=== PATIENT | female | born 1960 | race Asian ===

== ENCOUNTER 2017-02-16 05:22 | Day surgery (SDC) | payer OTHER ==
[~2017-02-16] VITALS: Ht 160 cm; Wt 112.3 kg
[~2017-02-16 05:22] MED LIST: ALLO100T PO; ASPI81TA3 PO; BISA-57 PO; BISA5TAB6 PO; BUME1TAB18 PO; EPOE10003 SC; FENO48TA4 PO; GABA100C14 PO; LANT3I SC; LORA10TA3 PO; PANT40TA4 PO; SENN-53 PO; SIMV5TAB50 PO; novolog insulin SC
[2017-02-16 06:01] VITALS: Ht 160 cm; Wt 112.3 kg
[2017-02-16 06:03] VITALS: BP 104/58; PULSE 83; RESP 20
[2017-02-16] MEDS ORDERED: FURO40SO PO (06:12)
[2017-02-16] MEDS ORDERED: SIME125T8 PO (06:12)
[2017-02-16] MEDS ORDERED: METO-335 PO (06:12)
[2017-02-16] MEDS ORDERED: ROCS PO (06:12)
[2017-02-16] MEDS ORDERED: NEPH PO (06:12)
[2017-02-16] MEDS ORDERED: HYDR-3010 PO (06:12)
[2017-02-16] MEDS ORDERED: HEPARIN 1000 UNITS/ML 10 ML INJ ONE (07:07)
[2017-02-16] MEDS ORDERED: LIDOCAINE 1% (MDV) 20 ML INJ ONE (07:07)
[2017-02-16] MEDS ORDERED: IODIXANOL LOCM 100 ML BTL ONE (07:32)
--- NOTE | 2017-02-16 07:45 | SIPON ---
Date/Time of Note Date/Time of Note DATE: 02/16/17 TIME: 07:44 Operative Report Preoperative Diagnosis L arm AV graft malfunction Postoperative Diagnosis same Operation/Procedure Performed L arm AV fistulagram, PTV severe stenosis in the venous limb of the graft Surgeon see signature line program assistant none Anesthesia: other Estimated blood loss: none Transfusion Required none Specimen none Grafts/Implants none Complications none ISHMAEL COTE MD Feb 16, 2017 07:45
[2017-02-16 08:02] VITALS: BP 112/56; PULSE 83; RESP 20
--- NOTE | 2017-02-16 08:20 | OPR ---
DATE OF OPERATION: 02/16/2017 PREOPERATIVE DIAGNOSIS: Left arm AV graft malfunction. POSTOPERATIVE DIAGNOSIS: Left arm AV graft malfunction. PROCEDURE PERFORMED: Left arm arteriovenous fistulogram with balloon venoplasty of the severe steno sis in the graft itself. SURGEON: Ishmael Hernandez MD ANESTHESIA: Local anesthesia. ESTIMATED BLOOD LOSS: Minimal. COMPLICATIONS: No intraprocedural complications. INDICATIONS: A 56-year-old woman. She has a left upper arm AV graft it has been functioning well, but she has had high venous pressures when on dialysis for the last few weeks. I brought her in [facility] for a fistulogram and possible intervention. DESCRIPTION OF PROCEDURE: The patient was brought to the assistant laboratory director and placed on the table in supin e position. Left arm was prepped and draped in the usual sterile fashion. I began by infiltrating over the left arm AV graft just above the elbow using about 5 mL of 1% Xylocaine. A micropuncture n eedle was used to enter the graft and then an 0.018 wire was inserted through the needle into the gr aft and a micropuncture sheath was advanced over the wire into the graft. I then did an AV fistulog moncho with compressing worsened to evaluate the arterial anastomosis. The findings of the AV fistulog moncho the arterial anastomosis is widely patent. The graft itself in the mid upper arm towards the up per arm has 1 area of severe stenosis greater than 80% and then diffuse narrowing throughout the mor e distal aspect. There is a covered stent across the venous anastomosis which was widely patent. T he anastomosis is to the axillary vein and the axillary vein and central veins are widely patent wit h no central stenosis whatsoever. I then decided to treat the stenosis in the graft so I advance th e Glidewire through the micropuncture sheath into the central veins. I exchanged the micropuncture sheath for a 6-Armenian sheath over the wire. I then angioplastied essentially the entire distal two- thirds of the graft using a 7 mm x 100 mm balloon. I did 2 inflations separately up to 18 atmospher es. There was a fairly severe waste, and it is at the area where the graft was being accessed. Aft er angioplasty, there was no residual stenosis and the graft itself was widely patent. There was an excellent thrill now and more pulsatility. I removed the catheter sheaths and wires and held press ure on the puncture site until there was good hemostasis. She tolerated the procedure well without any complications. Dictated By: ISHMAEL FLORES/JENNY Conf#: [id number] DID#: [id number] CC: PEGGY BROWN;*EndCC*
== END 2017-02-16 07:47 | disposition home or self-care (01) ==
LOC: SDS 05:22
PROVIDERS: ATTEND Surgery Vascular Surgery
DX: T82.898A Other specified complication of vascular prosthetic devices, implants and grafts, initial encounter (principal); Y84.1 Kidney dialysis as the cause of abnormal reaction of the patient, or of later complication, without mention of misadventure at the time of the procedure; Y92.89 Other specified places as the place of occurrence of the external cause; I12.0 Hypertensive chronic kidney disease with stage 5 chronic kidney disease or end stage renal disease; N18.6 End stage renal disease
CPT/HCPCS: 37248; 82962; 84132; C1725; C1894; Q9967; Z7610; J1644